=== PATIENT | female | born 1930 | race Caucasian/White ===

== ENCOUNTER 2018-01-15 09:34 | Emergency (ER) | payer OTHER, MEDICARE ==
[2018-01-15] MEDS ORDERED: NS 1,000 ML IV ONE (10:05)
--- NOTE | 2018-01-15 10:08 | EDPHY ---
H & P Stated Complaint: Feinted, hit back of head, on a blood thinner, at 0200. Time Seen by Provider: 01/15/18 09:59 HPI/ROS: CHIEF COMPLAINT: Head injury HISTORY OF PRESENT ILLNESS: Patient is a 87-year-old female with a history of atrial fibrillation on Xarelto who fainted or fell at 2 in the morning. She does not remember what happened but woke up on the ground. She has a hematoma to the back of her head. She denies headache or neck pain. Her gave her ice and Tylenol she seemed to feel better. They decided to come get checked out today. She denies chest pain or shortness of breath associated with the episode. She was trying to go to the bathroom. No vomiting or diarrhea. No recent illness. REVIEW OF SYSTEMS: Constitutional: denies: chills, fever, recent illness, recent injury EENTM: denies: blurred vision, double vision, nose congestion Respiratory: denies: cough, shortness of breath Cardiac: denies: chest pain, irregular heart rate, lightheadedness, palpitations Gastrointestinal/Abdominal: denies: abdominal pain, diarrhea, nausea, vomiting, blood streaked stools Genitourinary: denies: dysuria, frequency, hematuria, pain Musculoskeletal: See HPI Skin: denies: lesions, rash, jaundice, bruising Neurological: See HPI denies: headache, numbness, paresthesia, tingling, dizziness, weakness Hematologic/Lymphatic: denies: blood clots, easy bleeding, easy bruising Immunologic/allergic: denies: HIV/AIDS, transplant EXAM: GENERAL: Well-appearing, well-nourished and in no acute distress. HEAD: Hematoma right occiput, abrasion, no laceration Atraumatic, normocephalic. EYES: Pupils equal round and reactive to light, extraocular movements intact, sclera anicteric, conjunctiva are normal. ENT: TMs normal, nares patent, oropharynx clear without exudates. Moist mucous membranes. NECK: Normal range of motion, supple without lymphadenopathy or JVD. LUNGS: Breath sounds clear to auscultation bilaterally and equal. No wheezes rales or rhonchi. HEART: Regular rate and rhythm without murmurs, rubs or gallops. ABDOMEN: Soft, nontender, normoactive bowel sounds. No guarding, no rebound. No masses appreciated. BACK: No CVA tenderness, no spinal tenderness, step-offs or deformities EXTREMITIES: Skin tear right elbow, Normal range of motion, no pitting or edema. No clubbing or cyanosis. NEUROLOGICAL: Cranial nerves II through XII grossly intact. Normal speech, normal gait. 5/5 strength, normal movement in all extremities, normal sensation PSYCH: Normal mood, normal affect. SKIN: Abrasion right occiput and hematoma, skin tear right elbow Warm, dry, normal turgor, no visible rashes or lesions. Source: Patient Exam Limitations: No limitations - Personal History Current Tetanus Diphtheria and Acellular Pertussis (TDAP): Yes - Medical/Surgical History Hx Asthma: No Hx Chronic Respiratory Disease: No Hx Diabetes: No Hx Cardiac Disease: No Hx Renal Disease: No Hx Cirrhosis: No Hx Alcoholism: No Hx HIV/AIDS: No Hx Splenectomy or Spleen Trauma: No Other PMH: A-fib. - Family History Significant Family History: No pertinent family hx - Social History Smoking Status: Former smoker Alcohol Use: Sober Drug Use: None Constitutional: Initial Vital Signs Temperature (C) 36.6 C 01/15/18 09:34 Heart Rate 116 H 01/15/18 09:34 Respiratory Rate 16 01/15/18 09:34 Blood Pressure 131/92 H 01/15/18 09:34 O2 Sat (%) 92 01/15/18 09:34 O2 Delivery Mode Room Air Allergies/Adverse Reactions: No Known Allergies Allergy (Unverified 03/06/13 20:00) Home Medications: Medication Instructions Recorded Calcium Citrate 500 mg PO BID 11/16/14 Chlorthalidone [Chlorthalidone 25 25 mg PO DAILY 11/16/14 mg (*)] Cholecalciferol Vit D3 [Vitamin D3 1,000 units PO DAILY 11/16/14 (*)] Rivaroxaban [Xarelto 10mg (*)] 20 mg PO DAILY18 11/16/14 Memantine HCl [Namenda 5 mg (*)] 5 mg PO DAILY 01/20/16 Tiotropium Inhaler [Spiriva 18 mcg IH DAILY 01/20/16 Handihaler] metFORMIN HCL [Glucophage 500 mg 500 mg PO DAILY@1800 01/20/16 (*)] Medical Decision Making - Diagnostics EKG Interpretation: An EKG obtained and was read and documented in trace view. Please see trace view for full reading and report. Atrial fibrillation, similar to previous Imaging Results: Imaging Impressions Head CT 01/15/18 10:06 Impression: 1. No acute fracture or evidence of acute intracranial injury. 2. Moderate to large right parietooccipital scalp hematoma. Findings discussed with Emergency Department physician, Harry Duran, on 2017 at 11:15 a.m. Imaging: Discussed imaging studies w/ order caller Radiologist ED Course/Re-evaluation: 11:20 a.m. we discussed the x-ray and lab results which are reassuring. Patient and decline admission or observation in her eager to get home. We discussed indications for returning. Head CT ordered in this adult patient for trauma for the following indication: Greater than 65 years old, blood thinners Differential Diagnosis: Partial list of the Differential diagnosis considered include but were not limited to; syncope, hemorrhage, hematoma, arrhythmia, fracture and although unlikely based on the history and physical exam, I also considered infection, concussion, neck injury, acute coronary disease. I discussed these differential diagnoses and the plan with the patient as well as the usual and expected course. The patient understands that the diagnosis is provisional and that in medicine we are not always correct and that further workup is often warranted. Usual and customary warnings were given. All of the patient's questions were answered. The patient was instructed to return to the emergency department should the symptoms at all worsen or return, otherwise to followup with the physician as we discussed. - Data Points Laboratory Results: Laboratory Results 01/15/18 10:20 01/15/18 10:20 01/15/18 01/15/18 01/15/18 10:31 10:20 10:20 WBC RBC Hgb Hct MCV MCH MCHC RDW Plt Count MPV Neut % (Auto) Lymph % (Auto) Cooper % (Auto) Eos % (Auto) Baso % (Auto) Nucleat RBC Rel Count Absolute Neuts (auto) Absolute Lymphs (auto) Absolute Monos (auto) Absolute Eos (auto) Absolute Basos (auto) Absolute Nucleated RBC Immature Gran % Immature Gran # PT 27.9 SEC H SEC (12.0-15.0) INR 2.61 H (0.83-1.16) APTT 43.8 SEC H SEC (23.0-38.0) Sodium 139 mEq/L mEq/L (135-145) Potassium 4.1 mEq/L mEq/L (3.3-5.0) Chloride 101 mEq/L mEq/L (97-110) Carbon Dioxide 25 mEq/l mEq/l (22-31) Anion Gap 13 mEq/L mEq/L (8-16) BUN 26 mg/dL H mg/dL (7-23) Creatinine 0.9 mg/dL mg/dL (0.6-1.0) Estimated GFR 59 Glucose 139 mg/dL H mg/dL (70-100) Calcium 10.5 mg/dL H mg/dL (8.5-10.4) POC Troponin I 0.01 ng/mL ng/mL (0.00-0.08) 01/15/18 10:20 WBC 8.17 10^3/uL 10^3/uL (3.80-9.50) RBC 4.42 10^6/uL 10^6/uL (4.18-5.33) Hgb 13.9 g/dL g/dL (12.6-16.3) Hct 40.3 % % (38.0-47.0) MCV 91.2 fL fL (81.5-99.8) MCH 31.4 pg pg (27.9-34.1) MCHC 34.5 g/dL g/dL (32.4-36.7) RDW 13.0 % % (11.5-15.2) Plt Count 242 10^3/uL 10^3/uL (150-400) MPV 10.8 fL fL (8.7-11.7) Neut % (Auto) 83.0 % H % (39.3-74.2) Lymph % (Auto) 10.3 % L % (15.0-45.0) Cooper % (Auto) 4.5 % % (4.5-13.0) Eos % (Auto) 1.2 % % (0.6-7.6) Baso % (Auto) 0.6 % % (0.3-1.7) Nucleat RBC Rel Count 0.0 % % (0.0-0.2) Absolute Neuts (auto) 6.78 10^3/uL H 10^3/uL (1.70-6.50) Absolute Lymphs (auto) 0.84 10^3/uL L 10^3/uL (1.00-3.00) Absolute Monos (auto) 0.37 10^3/uL 10^3/uL (0.30-0.80) Absolute Eos (auto) 0.10 10^3/uL 10^3/uL (0.03-0.40) Absolute Basos (auto) 0.05 10^3/uL 10^3/uL (0.02-0.10) Absolute Nucleated RBC 0.00 10^3/uL 10^3/uL (0-0.01) Immature Gran % 0.4 % % (0.0-1.1) Immature Gran # 0.03 10^3/uL 10^3/uL (0.00-0.10) PT INR APTT Sodium Potassium Chloride Carbon Dioxide Anion Gap BUN Creatinine Estimated GFR Glucose Calcium POC Troponin I Medications Given: Discontinued Medications Sodium Chloride (Ns) 1,000 mls @ 0 mls/hr IV ONCE ONE; Wide Open PRN Reason: Protocol Stop: 01/15/18 10:06 Last Admin: 01/15/18 10:25 Dose: 1,000 mls Point of Care Test Results: Chemistry 01/15/18 10:31 POC Troponin I 0.01 ng/mL ng/mL (0.00-0.08) Departure - Departure Disposition: Home, Routine, Self-Care Clinical Impression: Hematoma Syncope Qualifiers: Syncope type: unspecified Qualified Code(s): R55 - Syncope and collapse Atrial fibrillation Qualifiers: Atrial fibrillation type: chronic Qualified Code(s): I48.2 - Chronic atrial fibrillation Condition: Fair Instructions: Syncope (ED), Concussion (ED), Hematoma (ED) Referrals: Sierra Augustine MD [Primary Care Provider] - As per Instructions
[2018-01-15 10:39] LABS: PLATELET COUNT 242 10^3/uL (150-400)
--- NOTE | 2018-01-15 10:40 | CPEKG ---
Heart Rate: 90 RR Interval: 667 QRSD Interval: 70 QT Interval: 364 QTC Interval: 446 QRS [place]: 54 T Wave [place]: 83 EKG Severity - ABNORMAL ECG - EKG Impression: ATRIAL FIBRILLATION, V-RATE 67-111 EKG Impression: CONSIDER ANTEROSEPTAL INFARCT EKG Impression: Similar to previous Electronically Signed By: Harry Duran 15-Jan-2018 10:44:56
[2018-01-15 10:52] LABS: INR 2.61 (0.83-1.16); PROTIME(PATIENT) 27.9 SEC (12.0-15.0)
[2018-01-15 11:49] VITALS: BP 127/76
== END 2018-01-15 12:03 | disposition home or self-care (01) ==
DX: S00.83XA Contusion of other part of head, initial encounter (principal); I48.2 Chronic atrial fibrillation; R55 Syncope and collapse; E86.9 Volume depletion, unspecified; Z87.891 Personal history of nicotine dependence; Z79.01 Long term (current) use of anticoagulants; Z79.84 Long term (current) use of oral hypoglycemic drugs; W18.09XA Striking against other object with subsequent fall, initial encounter
CPT/HCPCS: 84484-PO

== ENCOUNTER 2018-01-19 22:20 | Emergency (ER) | payer OTHER, MEDICARE ==
[2018-01-19] MEDS ORDERED: IPRATROPIUM/ALBUTEROL 3 ML DEYVIAL IH ONE (22:53)
--- NOTE | 2018-01-19 22:58 | EDPHY ---
H & P Stated Complaint: non-productive cough since tonight Time Seen by Provider: 01/19/18 22:34 HPI/ROS: HPI The patient presents with cough which has been present for the last 1.5 hr. It started suddenly after taking a pill of Hemp 15mg which she has taken several times before without any difficulty. The cough is dry, constant, moderate in severity. It improved after about 1 hr when her took her outside into the cool, slightly damp air. It is not associated with any shortness of breath or chest pain. She has not had any rhinorrhea, sore throat, fever. She denies any weakness or new confusion. She was feeling well earlier today and attended several events for father's Day. She does not have any difficulty swallowing, vomiting, post-tussive emesis, difficulty managing her secretions. She does have a long-term history of cigarette smoking, though quit about 30 years ago. She has no changes in her medications. She was seen in the emergency department several days ago after a fall, hitting her head, she has sustained a scalp hematoma and some bruising. She had a CT scan performed during her ER visit which was unremarkable. REVIEW OF SYSTEMS Constitutional: No fever, no chills. Eyes: No discharge. ENT: No sore throat. Cardiovascular: No chest pain, no palpitations. Respiratory: No cough, no shortness of breath. Gastrointestinal: No abdominal pain, no vomiting. Genitourinary: No hematuria. Musculoskeletal: No back pain. Skin: No rashes. Neurological: No headache. PMHx: Atrial fibrillation on Xarelto, Alzheimer's, being evaluated at [facility] , PMD is Dr Augustine, Neurologist is Dr Reardon, Business Intelligence Architect is Dr Manning Soc Hx: Lives at home with her , smoked for approximately 50 years PHYSICAL General Appearance: Alert, no distress, occasional cough Eyes: Pupils equal and round no pallor or injection ENT, Mouth: Mucous membranes moist Respiratory: There are no retractions, lungs are clear to auscultation Cardiovascular: Irregularly irregular Gastrointestinal: Abdomen is soft and non-tender, no masses, bowel sounds normal Neurological: A&O, moves all extremities Skin: Warm and dry, no rashes Musculoskeletal: Neck is supple non tender Extremities: symmetrical, full range of motion Psychiatric: Patient is oriented X 3, there is no agitation Source: Patient Exam Limitations: No limitations - Personal History Current Tetanus/Diphtheria Vaccine: Yes - Medical/Surgical History Hx Asthma: No Hx Chronic Respiratory Disease: No Hx Diabetes: No Hx Cardiac Disease: No Hx Renal Disease: No Hx Cirrhosis: No Hx Alcoholism: No Hx HIV/AIDS: No Hx Splenectomy or Spleen Trauma: No Other PMH: A-fib - Social History Smoking Status: Former smoker Constitutional: Initial Vital Signs Temperature (C) 36.4 C 01/19/18 22:21 Heart Rate 92 01/19/18 22:21 Respiratory Rate 16 01/19/18 22:21 Blood Pressure 159/114 H 01/19/18 22:21 O2 Sat (%) 95 01/19/18 22:21 O2 Delivery Mode Room Air Allergies/Adverse Reactions: No Known Allergies Allergy (Unverified 03/06/13 20:00) Home Medications: Medication Instructions Recorded Calcium Citrate 500 mg PO BID 11/16/14 Chlorthalidone [Chlorthalidone 25 25 mg PO DAILY 11/16/14 mg (*)] Cholecalciferol Vit D3 [Vitamin D3 1,000 units PO DAILY 11/16/14 (*)] Rivaroxaban [Xarelto 10mg (*)] 20 mg PO DAILY18 11/16/14 Memantine HCl [Namenda 5 mg (*)] 5 mg PO DAILY 01/20/16 Tiotropium Inhaler [Spiriva 18 mcg IH DAILY 01/20/16 Handihaler] metFORMIN HCL [Glucophage 500 mg 500 mg PO DAILY@1800 01/20/16 (*)] Medical Decision Making - Diagnostics Imaging Results: Imaging Impressions Chest X-Ray 01/19/18 22:39 Impression: 1. Suspect airways disease with no superimposed acute cardiopulmonary abnormality identified. 2. Borderline cardiomegaly enlargement with no evidence of congestive heart failure. Imaging: I viewed and interpreted images myself Differential Diagnosis: 87-year-old female with history of atrial fibrillation on Xarelto, Alzheimer's dementia, prior smoking history, who lives at home with her presents with cough which started somewhat suddenly at 9:30 p.m. Tonight after taking a hemp pill. She does not have any chest pain, shortness of breath. On exam, she is generally well-appearing, she is in atrial fibrillation currently but with normal heart rate. Her lungs sound clear, posterior pharynx is unremarkable. Her mental status is good, aspiration is a consideration though unlikely. Would also consider pneumonitis from her tablet. Pneumonia is a consideration. The acuity of onset of her symptoms makes COPD, new onset unlikely. Plan for chest x-ray, basic labs. We will trial DuoNeb to see if this aids her symptoms. In the emergency room, patient improved. She had really no ongoing cough while in the emergency department. Chest x-ray was unremarkable. Basic labs were also normal. She felt well enough to go home and would like to be discharged. She could possibly be experiencing some sort of reactive cough, and may have mild underlying COPD. However, with stable vital signs and feeling well, I believe she is suitable for discharge. She has follow-up tomorrow morning with her primary care doctor's office. If she has any ongoing cough at that time, maybe a consideration to trial albuterol inhaler. - Data Points Laboratory Results: Laboratory Results 01/19/18 23:00 01/19/18 23:00 01/19/18 01/19/18 23:00 23:00 WBC 6.89 10^3/uL 10^3/uL (3.80-9.50) RBC 4.55 10^6/uL 10^6/uL (4.18-5.33) Hgb 14.2 g/dL g/dL (12.6-16.3) Hct 41.8 % % (38.0-47.0) MCV 91.9 fL fL (81.5-99.8) MCH 31.2 pg pg (27.9-34.1) MCHC 34.0 g/dL g/dL (32.4-36.7) RDW 13.2 % % (11.5-15.2) Plt Count 282 10^3/uL 10^3/uL (150-400) MPV 10.4 fL fL (8.7-11.7) Neut % (Auto) 59.5 % % (39.3-74.2) Lymph % (Auto) 25.7 % % (15.0-45.0) [place] % (Auto) 6.7 % % (4.5-13.0) Eos % (Auto) 6.7 % % (0.6-7.6) Baso % (Auto) 1.0 % % (0.3-1.7) Nucleat RBC Rel Count 0.0 % % (0.0-0.2) Absolute Neuts (auto) 4.10 10^3/uL 10^3/uL (1.70-6.50) Absolute Lymphs (auto) 1.77 10^3/uL 10^3/uL (1.00-3.00) Absolute Monos (auto) 0.46 10^3/uL 10^3/uL (0.30-0.80) Absolute Eos (auto) 0.46 10^3/uL H 10^3/uL (0.03-0.40) Absolute Basos (auto) 0.07 10^3/uL 10^3/uL (0.02-0.10) Absolute Nucleated RBC 0.00 10^3/uL 10^3/uL (0-0.01) Immature Gran % 0.4 % % (0.0-1.1) Immature Gran # 0.03 10^3/uL 10^3/uL (0.00-0.10) Sodium 140 mEq/L mEq/L (135-145) Potassium 3.4 mEq/L mEq/L (3.3-5.0) Chloride 100 mEq/L mEq/L (97-110) Carbon Dioxide 25 mEq/l mEq/l (22-31) Anion Gap 15 mEq/L mEq/L (8-16) BUN 23 mg/dL mg/dL (7-23) Creatinine 0.9 mg/dL mg/dL (0.6-1.0) Estimated GFR 59 Glucose 93 mg/dL mg/dL (70-100) Calcium 10.3 mg/dL mg/dL (8.5-10.4) Medications Given: Discontinued Medications Albuterol/Ipratropium (Duoneb) 3 ml IH EDNOW ONE Stop: 01/19/18 22:54 Last Admin: 01/19/18 22:58 Dose: 3 ml Departure - Departure Disposition: Home, Routine, Self-Care Clinical Impression: Cough Condition: Good Instructions: Acute Cough (ED) Additional Instructions: The cause of your cough is not entirely clear. I would like for you to keep your appointment tomorrow with Dr. Chang for recheck of your lungs. If you continue to have the coughing, you might benefit from medication. However, because your symptoms are much better, I am not going to prescribe the medication for you. Referrals: Sierra Augustine MD [Primary Care Provider] - As per Instructions
[2018-01-19 23:45] LABS: PLATELET COUNT 282 10^3/uL (150-400)
[2018-01-20 00:06] VITALS: BP 140/86
== END 2018-01-20 00:07 | disposition home or self-care (01) ==
DX: R05 Cough (principal); G30.9 Alzheimer's disease, unspecified; Z87.891 Personal history of nicotine dependence